=== PATIENT | female | born 1990 | race Caucasian/White ===

== ENCOUNTER 2017-04-15 04:15 | Emergency (ER) | payer OTHER ==
[~2017-04-15] VITALS: Ht 160 cm; Wt 56.7 kg
[2017-04-15 04:30] VITALS: BP 122/72
--- NOTE | 2017-04-15 04:50 | Emergency Room Report ---
History of Present Illness General Chief Complaint: Skin Rash/Abscess Source: Patient Present Illness HPI Patient presents with discomfort throughout her legs with a rash She reports that the rash started 3 days ago Mainly on the legs however she does have some on the arms Feels that they are in line with insect bites She woke up this morning with increased pain to the areas of the bites Denies any fevers or chills denies any chest pressures of breath After further discussion of placing the patient on steroids she reports that she was seen a few days ago with another facility and was given steroids however does not appear to be helping the pain at this time Denies any discharge from the areas denies any blister formation Allergies: Coded Allergies: CIPROFLOXACIN (Verified Allergy, Unknown, 04/15/17) SULFAMETHOXAZOLE (Verified Allergy, Unknown, 04/15/17) TRIMETHOPRIM (Verified Allergy, Unknown, 04/15/17) Patient History Past Medical History: see triage record Pertinent Family History: none Reviewed Nursing Documentation: PMH: Agreed, PSxH: Agreed Nursing Documentation-PMH Past Medical History: No History, Except For Review of Systems All Other Systems: negative except mentioned in HPI Physical Exam Vital Signs Date Time Temp Pulse Resp B/P (MAP) Pulse Ox O2 Delivery O2 Flow Rate FiO2 04/15/17 04:17 97.7 91 19 122/72 97 Room Air Sp02 EP Interpretation: reviewed, normal General Appearance: no apparent distress Head: normocephalic, atraumatic Eyes: bilateral eye PERRL, bilateral eye EOMI ENT: hearing grossly normal, normal pharynx, TMs + canals normal, uvula midline Neck: full range of motion, supple, no meningismus, no bony tend Respiratory: lungs clear, normal breath sounds, no rhonchi, no respiratory distress, no retraction, no accessory muscle use Cardiovascular #1: normal peripheral pulses, regular rate, rhythm, no edema, no gallop, no JVD, no murmur Gastrointestinal: normal bowel sounds, non tender, soft, no mass, no organomegaly, non-distended, no guarding, no hernia, no pulsatile mass, no rebound Genitourinary: no CVA tenderness Musculoskeletal: normal inspection Neurologic: oriented x3, responsive, 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, motor strength/ tone normal, sensory intact Psychiatric: mood/affect normal Skin: other - Multiple areas of small raised erythematous lesions, most areas show a central loy Lymphatic: normal inspection, no adenopathy Medical Decision Making Diagnostic Impression: Primary Impression: Rash and other nonspecific skin eruption Additional Impression: Insect bite ER Course Patient appears to have multiple areas of insect bite No obvious sepsis or bacteremia Patient was provided with Motrin and Benadryl here And requires close outpatient followup Last Vital Signs Date Time Temp Pulse Resp B/P (MAP) Pulse Ox O2 Delivery O2 Flow Rate FiO2 04/15/17 04:30 97.7 19 122/72 97 Room Air 04/15/17 04:17 91 Status: improved Disposition: HOME, SELF-CARE Condition: Improved Additional Instructions: Patient is provided with the discharge instructions notified to follow up with primary doctor in the next 2-3 days otherwise return to the er with any worsening symptoms. Please note that this report is being documented using [employer] technology. This can lead to erroneous entry secondary to incorrect interpretation by the dictating instrument. BRISSA PANG D.O. Apr 15, 2017 04:50
[2017-04-15] MEDS ORDERED: IBUPROFEN600 MG ORAL (04:52)
[2017-04-15] MEDS ORDERED: BENADRYL25 MG ORAL (04:52)
[2017-04-15] MEDS ORDERED: BENADRYL ITCH28.3 G1 TP (04:52)
== END 2017-04-15 05:10 | disposition home or self-care (01) ==
LOC: EMR 04:35
DX: S80.869A Insect bite (nonvenomous), unspecified lower leg, initial encounter (principal); W57.XXXA Bitten or stung by nonvenomous insect and other nonvenomous arthropods, initial encounter; Y93.9 Activity, unspecified; Y99.9 Unspecified external cause status; R21 Rash and other nonspecific skin eruption; Z88.2 Allergy status to sulfonamides; Z88.1 Allergy status to other antibiotic agents
CPT/HCPCS: 99284